=== PATIENT | female | born 1980 | race Caucasian/White ===

== ENCOUNTER 2019-11-26 11:09 | Emergency (ER) | payer BC ==
[2019-11-26 11:15] VITALS: BP 150/72; PULSE 63; RESP 18; TEMP 98.2
[2019-11-26] MEDS ORDERED: ACET/COD 300 MG/30 MG STARTER PACK 6 TAB BTL PO STA (11:38)
--- NOTE | 2019-11-26 11:38 | ED ---
Skin/Abscess/FB HPI - General Chief complaint: Skin/Abscess/Foreign Body Stated complaint: abscess rt leg Time Seen by Provider: 11/26/19 11:15 Source: patient, RN notes reviewed Mode of arrival: ambulatory Limitations: no limitations - History of Present Illness Initial comments: 39-year-old female presents emergency Department chief complaint of right thigh abscess. Patient states started last week was seen by PCP started on antibiotics. Patient was seen at [facility] appear Monday night in which she had an I&D performed. Patient states there was packing to move it today and has a large amount of drainage. Patient reports no fevers or chills no pain with range of motion right knee right hip. Patient states she was given more antibiotics on Monday. Patient states that she finish her Bactrim taking Keflex currently. Patient reports this started after having a tattoo on her right leg. - Related Data Previous Rx's Medication Instructions Recorded Ibuprofen [Motrin] 600 mg PO Q8HR PRN #20 tab 11/26/19 Sulfamethox-Tmp 800-160Mg [Bactrim 1 each PO Q12HR #14 tab 11/26/19 Ds] Allergies Allergy/AdvReac Type Severity Reaction Status Date / Time Penicillins AdvReac Unknown Verified 11/26/19 11:13 Review of Systems ROS Statement: Those systems with pertinent positive or pertinent negative responses have been documented in the HPI. ROS Other: All systems not noted in ROS Statement are negative. Past Medical History Past Medical History: No Reported History History of Any Multi-Drug Resistant Organisms: None Reported Past Surgical History: Section Additional Past Surgical History / Comment(s): fallopian tube removal Smoking Status: Former smoker Past Alcohol Use History: None Reported Past Drug Use History: None Reported General Exam Limitations: no limitations General appearance: alert, in no apparent distress Neck exam: Present: normal inspection, full ROM. Absent: tenderness, men ingismus, lymphadenopathy Respiratory exam: Present: normal lung sounds bilaterally. Absent: respiratory distress, wheezes, rales, rhonchi, stridor Cardiovascular Exam: Present: regular rate, normal rhythm, normal heart sounds. Absent: systolic murmur, diastolic murmur, rubs, gallop, clicks Extremities exam: Present: other (3 cm of erythema the right thigh with a 2 cm abscess that is open, draining purulent drainage. Patient has full range of motion neurovascular intact right knee right leg right hip) Course Vital Signs 11/26/19 11:09 Temperature 98.2 F Pulse Rate 63 Respiratory 18 Rate Blood Pressure 150/72 O2 Sat by Pulse 99 Oximetry Medical Decision Making - Medical Decision Making Patient has open draining abscess which symptoms are actually improving. Patient continue antibiotics. Patient has a follow-up with her PCP and return for any worsening symptoms. Disposition Clinical Impression: Abscess of right thigh Disposition: HOME SELF-CARE Condition: Stable Instructions (If sedation given, give patient instructions): Abscess Incision and Drainage (DC), Abscess (ED) Additional Instructions: Please return to the Emergency Department if symptoms worsen or any other concerns. Prescriptions: Sulfamethox-Tmp 800-160Mg [Bactrim Ds] 1 each PO Q12HR #14 tab Ibuprofen [Motrin] 600 mg PO Q8HR PRN #20 tab PRN Reason: Pain Is patient prescribed a controlled substance at d/c from ED?: No Referrals: Lorna Wilson DO [Primary Care Provider] - 1-2 days Time of Disposition: 11:38
== END 2019-11-26 11:55 | disposition home or self-care (01) ==
LOC: EC 11:09
DX: L02.415 Cutaneous abscess of right lower limb (principal); Z87.891 Personal history of nicotine dependence; Z88.0 Allergy status to penicillin
CPT/HCPCS: 99283

== ENCOUNTER 2020-05-31 20:12 | Emergency (ER) | payer BC ==
[2020-05-31 20:23] VITALS: TEMP 98.9
[2020-05-31] MEDS ORDERED: LIDOCAINE 1% INJ 10MG/ML (20 ML MDV) SQ ONE (20:43)
--- NOTE | 2020-05-31 20:46 | ED ---
Skin/Abscess/FB HPI - General Chief complaint: Skin/Abscess/Foreign Body Stated complaint: Boil Time Seen by Provider: 05/31/20 20:33 Source: patient, RN notes reviewed Mode of arrival: ambulatory Limitations: no limitations - History of Present Illness Initial comments: Patient is a 40-year-old female presents to emergency department with a abscess to her right butt cheek inside of her butt crack. She states that she has been getting abscesses repeatedly. She just noted that she got one drain in her armpit not too long ago. She states that she has tried warm compresses squeezing herself at home popping or supple home with no relief. She decided come to emergency Department if I get it drained due to causing her severe discomfort, pain and inability to sit due to pressure. She denied any chest pain shortness of breath headache nausea vomiting diarrhea constipation fever fatigue chills weakness numbness tingling. - Related Data Previous Rx's Medication Instructions Recorded Ibuprofen [Motrin] 600 mg PO Q8HR PRN #20 tab 11/26/19 Sulfamethox-Tmp 800-160Mg [Bactrim 1 each PO Q12HR #14 tab 11/26/19 Ds] Cephalexin [Keflex] 500 mg PO Q6HR 10 Days #40 cap 05/31/20 Ibuprofen [Motrin] 800 mg PO Q8H 10 Days #30 tab 05/31/20 Sulfamethox-Tmp 800-160Mg [Bactrim 1 each PO Q12HR #20 tab 05/31/20 Ds] Allergies Allergy/AdvReac Type Severity Reaction Status Date / Time Penicillins AdvReac Unknown Verified 05/31/20 20:23 Review of Systems ROS Statement: Those systems with pertinent positive or pertinent negative responses have been documented in the HPI. ROS Other: All systems not noted in ROS Statement are negative. Past Medical History Past Medical History: Asthma Additional Past Medical History / Comment(s): boils. History of Any Multi-Drug Resistant Organisms: MRSA Date of last positivie culture/infection: 2019 MDRO Source:: right thigh. Past Surgical History: Section Additional Past Surgical History / Comment(s): fallopian tube removal Past Psychological History: No Psychological Hx Reported Smoking Status: Former smoker Past Alcohol Use History: None Reported Past Drug Use History: None Reported General Exam Limitations: no limitations General appearance: alert, in no apparent distress Head exam: Present: atraumatic, normocephalic, normal inspection Eye exam: Present: normal appearance, PERRL, EOMI. Absent: scleral icterus, conjunctival injection, periorbital swelling ENT exam: Present: normal exam, mucous membranes moist Neck exam: Present: normal inspection. Absent: tenderness, meningismus, lymphadenopathy Respiratory exam: Present: normal lung sounds bilaterally. Absent: respiratory distress, wheezes, rales, rhonchi, stridor Cardiovascular Exam: Present: regular rate, normal rhythm, normal heart sounds. Absent: systolic murmur, diastolic murmur, rubs, gallop, clicks GI/Abdominal exam: Present: soft, normal bowel sounds. Absent: distended, tenderness, guarding, rebound, rigid Extremities exam: Present: normal inspection, full ROM, normal capillary refill. Absent: tenderness, pedal edema, joint swelling, calf tenderness Back exam: Present: normal inspection Neurological exam: Present: alert, oriented X3, CN II-XII intact Psychiatric exam: Present: normal affect, normal mood Skin exam: Present: warm, dry, intact, normal color, other (Small 1 cm x 1 cm abscess to the left butt cheek just inside the crack, there is erythematous tender to the touch.). Absent: rash Course Vital Signs 05/31/20 20:19 Temperature 98.9 F Pulse Rate 98 Respiratory 20 Rate Blood Pressure 121/69 O2 Sat by Pulse 97 Oximetry Procedures - Incision & Drainage Consent Obtained: verbal consent Site: other (Left butt cheek inside about crack) Size (cm): 1 Anesthetic Used: lidocaine 1% I&D Cleaning Method: Alcohol Wipe Sterile Field Used?: No Scalpel Used: #11 Needle Aspiration Performed?: No Irrigation Performed?: No I&D Drainage Obtained: Pus, Blood Culture Obtained?: No Complications: pain Patient Tolerated Procedure: well, no complications Medical Decision Making - Medical Decision Making 40-year-old female complaining of abscess to the left buttock just inside of the crack. Lidocaine ordered, will try to elie the boil and relieve the pressure. Patient tolerated procedure well, minimal pus and blood was expressed. Case discussed with Dr. Benavidez patient can discharge home with antibiotic therapy. Disposition Clinical Impression: Boil of buttock Disposition: HOME SELF-CARE Condition: Stable Instructions (If sedation given, give patient instructions): Abscess (ED) Additional Instructions: Please return to the Emergency Department if symptoms worsen or any other concerns. Follow-up with primary care physician and get dermatology referral for recurrent abscesses. Take antibiotics as prescribed until complete. Intermedic control pain management the [id number] pain medications. Prescriptions: Sulfamethox-Tmp 800-160Mg [Bactrim Ds] 1 each PO Q12HR #20 tab Cephalexin [Keflex] 500 mg PO Q6HR 10 Days #40 cap Ibuprofen [Motrin] 800 mg PO Q8H 10 Days #30 tab Is patient prescribed a controlled substance at d/c from ED?: No Referrals: Damien Babcock MD [Primary Care Provider] - 1-2 days Time of Disposition: 21:20
[2020-05-31] MEDS ORDERED: ACET/COD 300 MG/30 MG STARTER PACK 6 TAB BTL PO STA (21:19)
[2020-05-31 21:37] VITALS: BP 109/59; PULSE 83; RESP 16
== END 2020-05-31 21:37 | disposition home or self-care (01) ==
LOC: EC 20:12
DX: L02.32 Furuncle of buttock (principal); Z88.0 Allergy status to penicillin; Z87.891 Personal history of nicotine dependence; Z86.14 Personal history of Methicillin resistant Staphylococcus aureus infection
CPT/HCPCS: 99282; 10060; J2001